=== PATIENT | female | born 2005 | race Caucasian/White ===

== ENCOUNTER 2025-05-25 15:16 | Emergency (ER) | payer OTHER, SELFPAY ==
--- NOTE | ~2025-05-25 | CT_ITS ---
April Dolan EXAMINATION: CT abdomen pelvis w con COMPARISON: None HISTORY: abdominal pain TECHNIQUE: Axial images were obtained through the abdomen, pelvis post administration of IV contrast. Oral contrast was also administered. Coronal reconstruction images were obtained from the axial views. CT scan performed using dose optimization techniques including the following automated exposure control; adjustment of mA and/or kV; use of iterative reconstruction technique. Automatic exposure control was used to reduce radiation dose. Permanent radiation dose record is archived to PACS. FINDINGS: CT abdomen: LUNG BASES: The lung bases are clear. The visualized portions of the heart and pericardium are unremarkable. LIVER: Unremarkable, liver contours intact, no lesions. SPLEEN: Unremarkable. KIDNEYS: Right Kidney: Unremarkable. No calculi. No hydronephrosis. Left Kidney: Unremarkable. No calculi. No hydronephrosis ADRENAL GLANDS: Unremarkable. PANCREAS: Unremarkable. GALLBLADDER/BILIARY: Unremarkable. No biliary dilatation. STOMACH AND ESOPHAGUS: Visualized stomach and esophagus within normal limits. BOWEL/MESENTERY: Moderate fecal content, no colitis or diverticulitis. Appendix normal. Mesentery normal. Small bowel normal. ADENOPATHY/RETROPERITONEUM: No lymphadenopathy. AORTA/VASCULATURE: Normal caliber aorta. FREE FLUID OR FREE AIR: None. CT pelvis: SOLID ORGANS/REPRODUCTIVE: Large cystic lesion left ovary 4 x 5 cm possible functional cyst, pelvic ultrasound recommended in 6 weeks to assess resolution. BLADDER: Within normal limits. OSSEOUS STRUCTURES: No acute osseous abnormality.No suspicious lesions. OVERLYING SOFT TISSUES: Unremarkable. IMPRESSION: 1. No acute intra-abdominal process. Incidental findings above Reviewed, dictated and finalized at location P.
[2025-05-25 15:26] VITALS: BP 126/90; PULSE 73; RESP 18; TEMP 36.6; O2SAT 100
[2025-05-25 15:44] LABS: BEDSIDEPREGUCG Negative (Negative)
--- NOTE | 2025-05-25 15:48 | ED_ITS ---
HPI - General Adult General Chief complaint: Abdominal Pain <Tamiko Mobley December, - Last Filed: 05/25/25 15:52> Stated complaint: ANNA Abdominal pain x 3hrs, no N/V <Tamiko Mobley December, - Last Filed: 05/25/25 15:52> Time Seen by Provider: 05/25/25 15:48 <Tamiko Mobley December,N - Last Filed: 05/25/25 15:52> Focused HPI: April Daniels is a 19 y/o female who presents wt complaints of having severe abdominal pain to the left upper abdomen radiating down to the umbilical region. Denies nausea/vomiting. Last BM was today, she states it was painful. Denies urinary symptoms. bowel sounds present, abdomen soft + pain to Left upper quadrant GENERAL: Well-appearing, well-nourished, and in no acute distress. HEAD: Normocephalic, atraumatic. CHEST: Clear to auscultation. ?No respiratory distress. HEART: Regular rate and rhythm.? NEURO: ?Alert and oriented x3. Patient screened in triage and initial orders placed.? ?Additional care and disposition to be based upon?diagnostic testing and treatment. <Tamiko Mobley December,N - Last Filed: 05/25/25 15:52> History of Present Illness HPI narrative: I agree with the HPI above. <Marycarmen Jauregui, BRASS INSTRUMENT REPAIR TECHNICIAN - Last Filed: 05/25/25 19:02> Related Data Allergies/adverse reactions: Allergies Allergy/AdvReac Type Severity Reaction Status Date / Time Penicillins Allergy Intermediate Hives Verified 05/25/25 15:19 <Tamiko Mobley December, - Last Filed: 05/25/25 15:52> Review of Systems 2 Review of Systems: All systems reviewed & are unremarkable except as noted in HPI and below <Marycarmen Jauregui, BRASS INSTRUMENT REPAIR TECHNICIAN - Last Filed: 05/25/25 19:02> Exam 2 Narrative: GENERAL: Well appearing, well-nourished, non-toxic, in no acute distress. HEAD: Normocephalic, atraumatic. NECK: Supple. No adenopathy, no masses. RESPIRATORY: Airway patent, respirations nonlabored. Clear to auscultation bilaterally, no rales, rhonchi, wheezing. CARDIOVASCULAR: Regular rate and rhythm without murmurs, rubs, or gallops. Peripheral pulses 2+ and equal bilaterally. ABDOMINAL: Soft, nontender, nondistended, no hepatosplenomegaly. Normoactive BS. MUSCULOSKELETAL: Moves all extremities. Strength/ROM intact without gross deformities. SKIN: Warm, dry, normal color. No rashes. NEURO: A&O X3. Speech clear. Cranial nerves II-XII intact. No ataxic movements. PSYCHIATRIC: Appropriate mood and affect. Normal interaction. <Marycarmen Jauregui, BRASS INSTRUMENT REPAIR TECHNICIAN - Last Filed: 05/25/25 19:02> Course Vital Signs Vital signs: Vital Signs Temperature 36.6 C 05/25/25 15:26 Pulse Rate 73 05/25/25 15:26 Respiratory Rate 18 05/25/25 15:26 Blood Pressure 126/90 05/25/25 15:26 Pulse Oximetry 100 05/25/25 15:26 Oxygen Delivery Room Air 05/25/25 15:26 Temperature 36.6 C 05/25/25 16:33 Pulse Rate 65 05/25/25 18:41 Respiratory Rate 17 05/25/25 18:41 Blood Pressure 128/86 05/25/25 18:41 Pulse Oximetry 100 05/25/25 18:41 Oxygen Delivery Room Air 05/25/25 16:30 <Tamiko Bhardwaj, BRASS INSTRUMENT REPAIR TECHNICIAN - Last Filed: 05/25/25 15:52> Vital Signs Temperature 36.6 C 05/25/25 15:26 Pulse Rate 73 05/25/25 15:26 Respiratory Rate 18 05/25/25 15:26 Blood Pressure 126/90 05/25/25 15:26 Pulse Oximetry 100 05/25/25 15:26 Oxygen Delivery Room Air 05/25/25 15:26 Temperature 36.6 C 05/25/25 16:33 Pulse Rate 65 05/25/25 18:41 Respiratory Rate 17 05/25/25 18:41 Blood Pressure 128/86 05/25/25 18:41 Pulse Oximetry 100 05/25/25 18:41 Oxygen Delivery Room Air 05/25/25 16:30 <Marycarmen Jauregui, BRASS INSTRUMENT REPAIR TECHNICIAN - Last Filed: 05/25/25 19:02> Medical Decision Making MDM Narrative Medical decision making narrative: April Daniels is a 19 y/o female who presents with complaints of having severe abdominal pain to the left upper abdomen radiating down to the umbilical region. Denies nausea/vomiting. Last BM was today, she states it was painful. Denies urinary symptoms. Labs Ordered: CBC, CMP, UA Imaging Ordered: CT abdomen pelvis Medications Ordered: None necessary Results: Patient's CT abdomen pelvis indicates no acute abnormalities Diagnosis: Left upper quadrant abdominal pain Patient Education/Shared MDM: Results of lab work and imaging shared with patient. She reports her abdominal pain has subsided this time. Patient strongly advised to maintain hydration status upon discharge and follow-up with her PCP as soon as possible. Pt will not be discharged home with any new prescriptions, was advised to use MiraLax as needed to treat constipation. Strict return precautions provided. Patient verbalized understanding and is in agreement with plan. Vital signs stable at time of discharge. All questions answered. <Marycarmen Jauregui, BRASS INSTRUMENT REPAIR TECHNICIAN - Last Filed: 05/25/25 19:02> Differential Diagnosis Differential Diagnosis: Cholecystitis, cholelithiasis, urinary tract infection, pancreatitis < Marycarmen Jauregui, BRASS INSTRUMENT REPAIR TECHNICIAN - Last Filed: 05/25/25 19:02> Vital Signs Vital Signs: Vital Signs Temperature 36.6 C 05/25/25 15:26 Pulse Rate 73 05/25/25 15:26 Respiratory Rate 18 05/25/25 15:26 Blood Pressure 126/90 05/25/25 15:26 Pulse Oximetry 100 05/25/25 15:26 Oxygen Delivery Room Air 05/25/25 15:26 Temperature 36.6 C 05/25/25 16:33 Pulse Rate 65 05/25/25 18:41 Respiratory Rate 17 05/25/25 18:41 Blood Pressure 128/86 05/25/25 18:41 Pulse Oximetry 100 05/25/25 18:41 Oxygen Delivery Room Air 05/25/25 16:30 <Tamiko Bhardwaj, BRASS INSTRUMENT REPAIR TECHNICIAN - Last Filed: 05/25/25 15:52> Vital Signs Temperature 36.6 C 05/25/25 15:26 Pulse Rate 73 05/25/25 15:26 Respiratory Rate 18 05/25/25 15:26 Blood Pressure 126/90 05/25/25 15:26 Pulse Oximetry 100 05/25/25 15:26 Oxygen Delivery Room Air 05/25/25 15:26 Temperature 36.6 C 05/25/25 16:33 Pulse Rate 65 05/25/25 18:41 Respiratory Rate 17 05/25/25 18:41 Blood Pressure 128/86 05/25/25 18:41 Pulse Oximetry 100 05/25/25 18:41 Oxygen Delivery Room Air 05/25/25 16:30 <Marycarmen Jauregui, BRASS INSTRUMENT REPAIR TECHNICIAN - Last Filed: 05/25/25 19:02> Lab Data Lab results reviewed: Yes I reviewed the patient's lab results. <Marycarmen Jauregui, BRASS INSTRUMENT REPAIR TECHNICIAN - Last Filed: 05/25/25 19:02> Result diagrams: 05/25/25 15:39 05/25/25 15:39 <Tamiko Bhardwaj, BRASS INSTRUMENT REPAIR TECHNICIAN - Last Filed: 05/25/25 15:52> Labs: Lab Results 05/25/25 05/25/25 Range/Units 15:39 15:42 WBC 7.4 (4.5-10.0) K/mm3 RBC 4.20 (4.2-5.4) M/mm3 Hgb 12.4 (12.0-15.0) g/dL Hct 38.7 (37.0-47.0) % MCV 92.1 (80-100) fl MCH 29.5 (26-34) pg MCHC 32.0 (32-36) g/dl RDW 12.3 (11.5-14.5) % Plt Count 309 (150-375) k/mm3 MPV 9.5 (7.4-10.4) fl Immature Gran % (Auto) 0.3 (0-0.5) % Neut % (Auto) 72.1 (45.5-73.1) % Lymph % (Auto) 21.1 (18.3-44.2) % [place] % (Auto) 4.8 (2.6-8.5) % Eos % (Auto) 1.2 (0-4.4) % Baso % (Auto) 0.5 (0.2-1.2) % Lymph # (Auto) 1.55 (0.9-3.2) K/mm3 [place] # (Auto) 0.4 (0.1-0.6) K/mm3 Eos # (Auto) 0.1 (0-0.3) K/mm3 Baso # (Auto) 0.0 (0.0-0.1) K/mm3 Abs Immat Gran (auto) 0.02 (0.00-0.031) K/mm3 Absolute Neuts (auto) 5.3 (1.3-6.7) K/mm3 Absolute Nucleated RBC 0.000 (0.0-0.012) K/mm3 Nucleated RBC % 0.0 (0.0-0.2) % Sodium 137 (134-143) mmol/L Potassium 3.9 (3.4-5.0) mmol/L Chloride 103 (98-107) mmol/L Carbon Dioxide 25 (22-30) mmol/L Anion Gap 9 (4-12) mmol/L BUN 15 (8-21) mg/dL Creatinine 0.73 (0.7-1.0) mg/dL Estim Creat Clear Calc 108 ml/min Estimated GFR > 60 (59 - ) Glucose 98 (65-110) mg/dL Calcium 9.3 (8.9-10.7) mg/dL Total Bilirubin 0.5 (0.2-1.3) mg/dL AST 35 (14-36) U/L ALT 25 (6-35) U/L Alkaline Phosphatase 49 (45-116) U/L Total Protein 7.6 (6.3-8.6) g/dL Albumin 4.8 (3.7-5.6) g/dL Lipase 44 (23-300) U/L Urine Color Yellow (Yellow) Urine Appearance Turbid H (Clear) Urine pH 7.5 (5.0-9.0) Ur Specific [place] 1.027 (1.001-1.035) Urine Protein Negative (Negative) mg/dL Urine Glucose (UA) Negative (Negative) mg/dL Urine Ketones Negative (Negative) mg/dL Ur Blood (Man) Trace (Negative) Urine Nitrate Negative (Negative) Urine Bilirubin Negative (Negative) Urine Urobilinogen 1.0 (<2.0) mg/dL Add Ur Microanalysis Reviewed Leukocyte Esterase Rfl Negative (Negative) ISRAEL/UL Urine RBC 0-2 (0-2) /hpf Urine WBC 0-5 (0-3) /hpf Ur Squamous Epith Cells None seen (Few) /hpf Amorphous Sediment Heavy H (None) Urine Bacteria Rare /hpf Urine Casts 0-2 POC Urine HCG, Qual Negative (Negative) <Tamiko Itz Lashae, BRASS INSTRUMENT REPAIR TECHNICIAN - Last Filed: 05/25/25 15:52> Lab Results 05/25/25 05/25/25 Range/Units 15:39 15:42 WBC 7.4 (4.5-10.0) K/mm3 RBC 4.20 (4.2-5.4) M/mm3 Hgb 12.4 (12.0-15.0) g/dL Hct 38.7 (37.0-47.0) % MCV 92.1 (80-100) fl MCH 29.5 (26-34) pg MCHC 32.0 (32-36) g/dl RDW 12.3 (11.5-14.5) % Plt Count 309 (150-375) k/mm3 MPV 9.5 (7.4-10.4) fl Immature Gran % (Auto) 0.3 (0-0.5) % Neut % (Auto) 72.1 (45.5-73.1) % Lymph % (Auto) 21.1 (18.3-44.2) % [place] % (Auto) 4.8 (2.6-8.5) % Eos % (Auto) 1.2 (0-4.4) % Baso % (Auto) 0.5 (0.2-1.2) % Lymph # (Auto) 1.55 (0.9-3.2) K/mm3 [place] # (Auto) 0.4 (0.1-0.6) K/mm3 Eos # (Auto) 0.1 (0-0.3) K/mm3 Baso # (Auto) 0.0 (0.0-0.1) K/mm3 Abs Immat Gran (auto) 0.02 (0.00-0.031) K/mm3 Absolute Neuts (auto) 5.3 (1.3-6.7) K/mm3 Absolute Nucleated RBC 0.000 (0.0-0.012) K/mm3 Nucleated RBC % 0.0 (0.0-0.2) % Sodium 137 (134-143) mmol/L Potassium 3.9 (3.4-5.0) mmol/L Chloride 103 (98-107) mmol/L Carbon Dioxide 25 (22-30) mmol/L Anion Gap 9 (4-12) mmol/L BUN 15 (8-21) mg/dL Creatinine 0.73 (0.7-1.0) mg/dL Estim Creat Clear Calc 108 ml/min Estimated GFR > 60 (59 - ) Glucose 98 (65-110) mg/dL Calcium 9.3 (8.9-10.7) mg/dL Total Bilirubin 0.5 (0.2-1.3) mg/dL AST 35 (14-36) U/L ALT 25 (6-35) U/L Alkaline Phosphatase 49 (45-116) U/L Total Protein 7.6 (6.3-8.6) g/dL Albumin 4.8 (3.7-5.6) g/dL Lipase 44 (23-300) U/L Urine Color Yellow (Yellow) Urine Appearance Turbid H (Clear) Urine pH 7.5 (5.0-9.0) Ur Specific [place] 1.027 (1.001-1.035) Urine Protein Negative (Negative) mg/dL Urine Glucose (UA) Negative (Negative) mg/dL Urine Ketones Negative (Negative) mg/dL Ur Blood (Man) Trace (Negative) Urine Nitrate Negative (Negative) Urine Bilirubin Negative (Negative) Urine Urobilinogen 1.0 (<2.0) mg/dL Add Ur Microanalysis Reviewed Leukocyte Esterase Rfl Negative (Negative) [place]RA[place]/UL Urine RBC 0-2 (0-2) /hpf Urine WBC 0-5 (0-3) /hpf Ur Squamous Epith Cells None seen (Few) /hpf Amorphous Sediment Heavy H (None) Urine Bacteria Rare /hpf Urine Casts 0-2 POC Urine HCG, Qual Negative (Negative) <Marycarmen Jauregui APRN - Last Filed: 05/25/25 19:02> Imaging Data Attestation: I personally reviewed and interpreted this imaging study as follows: < Marycarmen Jauregui APRN - Last Filed: 05/25/25 19:02> Radiologist's impression: Impressions Abdomen/Pelvis CT 05/25/25 17:41 IMPRESSION: 1. No acute intra-abdominal process. Incidental findings above <Marycarmen Jauregui APRN - Last Filed: 05/25/25 19:02> Discharge Plan Discharge Clinical Impression: Abdominal pain <Tamiko Bhardwaj APRN - Last Filed: 05/25/25 15:52> Patient Disposition: Home <Tamiko Mobley December, Filed: 05/25/25 15:52> Condition: Stable <Tamiko Mobley December, Filed: 05/25/25 15:52> Instructions: Antibiotic Form, Abdominal Pain (ED) <Tamiko Mobley December, Last Filed: 05/25/25 15:52> Additional Instructions: Please return to the ER with any worsening symptoms. Follow-up with primary care provider in the next 2-3 days for re-evaluation. Take all medications as prescribed, including regularly scheduled medications. You may use MiraLax as needed to help relieve symptoms of constipation. <Tamiko Mobley December, Last Filed: 05/25/25 15:52> Patient Language: Maltese <Tamiko Mobley December, Filed: 05/25/25 15:52> Follow-up/Referrals: PHYSICIAN NOT ON STAFF,NONSTAFF [Primary Care Provider] <Tamiko Mobley December, Last Filed: 05/25/25 15:52> Stand Alone Forms: Work/School Release IP <Tamiko Mobley December, Filed: 05/25/25 15:52> Time of Disposition: 19:02 <Tamiko Mobley December, Last Filed: 05/25/25 15:52> 19:02 <Marycarmen Jauregui, - Last Filed: 05/25/25 19:02>
[2025-05-25 15:58] LABS: Hematocrit 38.7 % (37.0-47.0); Hemoglobin 12.4 g/dL (12.0-15.0); Immature Granulocyte Percent A 0.3 % (0-0.5); Lymphocytes Absolute Auto 1.55 K/mm3 (0.9-3.2); Mean Corpuscular HGB Conc 32.0 g/dl (32-36); Mean Corpuscular Hemoglobin 29.5 pg (26-34); Mean Corpuscular Volume 92.1 fl (80-100); Nucleated Red Blood Cells Absolute Auto 0.000 K/mm3 (0.0-0.012); Nucleated Red Blood Cells Perc 0.0 % (0.0-0.2); Platelet Count Result 309 k/mm3 (150-375); Red Blood Count 4.20 M/mm3 (4.2-5.4); White Blood Count 7.4 K/mm3 (4.5-10.0)
[2025-05-25 16:13] LABS: Alanine Aminotransferase 25 U/L (6-35); Albumin Level 4.8 g/dL (3.7-5.6); Alkaline Phosphatase 49 U/L (45-116); Anion Gap 9 mmol/L (4-12); Aspartate Amino Transferase 35 U/L (14-36); Bilirubin,Total 0.5 mg/dL (0.2-1.3); Blood Urea Nitrogen 15 mg/dL (8-21); Calcium 9.3 mg/dL (8.9-10.7); Carbon Dioxide 25 mmol/L (22-30); Chloride 103 mmol/L (98-107); Estimated CRCL calculation 108 ml/min; Estimated Glomerular Filt Rate > 60; Glucose 98 mg/dL (65-110); Lipase 44 U/L (23-300); Potassium 3.9 mmol/L (3.4-5.0); Sodium 137 mmol/L (134-143); Total Protein 7.6 g/dL (6.3-8.6)
[2025-05-25 16:14] LABS: Add Urine Microscopic? YES; Appearance Urine Turbid (Clear); Glucose Urine UA Negative (Negative); Leukocyte Esterase Ur Negative LEU/UL (Negative); Need Manual Microscopic Reviewed; Nitrate Urine Negative (Negative); Non Pathogenic Casts 0-2; Specific Grav Ur 1.027 (1.001-1.035)
[2025-05-25 16:30] VITALS: BP 145/78; PULSE 71; RESP 13; TEMP 36.4; O2SAT 100
[2025-05-25 16:33] VITALS: BP 145/78; PULSE 72; RESP 14; TEMP 36.6; O2SAT 100
[2025-05-25 18:41] VITALS: BP 128/86; PULSE 65; RESP 17; O2SAT 100
[2025-05-25 19:25] VITALS: BP 115/83; PULSE 78; RESP 16; O2SAT 100
== END 2025-05-25 19:26 | disposition home or self-care (01) ==
PROVIDERS: Emergency Medicine; Emergency Provider Registered Nurse
DX: R10.12 Left upper quadrant pain (principal); N83.202 Unspecified ovarian cyst, left side
CPT/HCPCS: 36415; 74177; 80053; 81001; 81025; 83690; 85025; 99284; Q9967